=== PATIENT | female | born 1945 | race Caucasian/White ===

== ENCOUNTER 2017-02-25 00:03 | Inpatient (IN) | payer OTHER, MEDICARE ==
[2017-02-25] VITALS (8 sets, daily range): BP systolic 158–178; BP diastolic 70–91; PULSE 75–90; RESP 18–20; TEMP 98.9–100.6; O2SAT 94–98
[~2017-02-25] VITALS: Ht 162.6 cm; Wt 65.5 kg
[2017-02-25] MEDS ORDERED: ARMO120T PO (01:15)
[2017-02-25] MEDS ORDERED: POTA10CA PO (01:15)
[2017-02-25] MEDS ORDERED: LORA0.5T PO (01:15)
[2017-02-25] MEDS ORDERED: LEVS0.123 PO (01:15)
[2017-02-25] MEDS ORDERED: CITA20TA4 PO (01:15)
[2017-02-25] MEDS ORDERED: TRAM50TA PO (01:15)
[2017-02-25] MEDS ORDERED: THYR15 PO (01:15)
[2017-02-25] MEDS ORDERED: LOSA50TA2 PO (01:15)
[2017-02-25] MEDS ORDERED: ONDANSETRON HCL 4 MG/2 ML VIAL IV PUSH ONE (02:00)
[2017-02-25] MEDS ORDERED: MORPHINE SULFATE 4 MG/ML INJ IV PUSH ONE (02:00)
[2017-02-25] MEDS ORDERED: MORPHINE SULFATE 2 MG/ML INJ IV PUSH PRN ×2 (02:00→07:45)
--- NOTE | 2017-02-25 02:01 | PD ---
HPI Chief Complaint: Fall Time Seen by Provider: 01:06 Travel History International Travel<30 days: No Contact w/Intl Traveler<30days: No Traveled to known affect area: No History of Present Illness HPI This is a 71-year-old female with a history of coronary artery disease, diabetes mild as, gastroparesis, hyperlipidemia, hypertension, hypothyroidism, who presents from [facility] as a trauma transfer. The patient apparently tripped over a dog toy and fell onto her right rib area. She states at that time the pain was severe. She reported associated difficulty breathing secondary to the pain. CT scan at [facility] showed flipped chest on the right side. There was no evidence of pneumothoraces or hemothoraces. The patient was accepted by Dr. Ivy. [facility] Past Medical History High Cholesterol: Yes Coronary Artery Disease: Yes Diabetes: Yes Patient Takes Glucophage: No Gastrointestinal Disorders: Yes (GASTROPARESIS) Immunizations Current: Yes Thyroid Disease: Yes ?: Not Past Surgical History Appendectomy: Yes Section: Yes Coronary Artery Bypass Graft: Yes Coronary Stent: Yes Tonsillectomy: Yes Social History Alcohol Use: No Tobacco Use: No Substance Use: No Allergies-Medications (Allergen,Severity, Reaction): Coded Allergies: dicyclomine (Verified Allergy, Unknown, 02/25/17) metoclopramide (Verified Allergy, Unknown, 02/25/17) Reported Meds & Prescriptions Reported Meds & Active Scripts Active Reported Citalopram (Citalopram Hydrobromide) 20 Mg Tab 20 Mg PO DAILY [place] Thyroid (Thyroid) 15 Mg Tab 15 Mg PO HS Tramadol (Tramadol HCl) 50 Mg Tab 50 Mg PO Q4H PRN Potassium Chloride ER (Potassium Chloride) 10 Meq Cap Unknown Dose PO BID Levsin (Hyoscyamine Sulfate) 0.125 Mg Tab 0.125 Mg PO Q6H Lorazepam 0.5 Mg Tab 0.5 Mg PO Q4H PRN Losartan-Hydrochlorothiazide 50-12.5 Mg Tab 1 Tab PO DAILY [place] Thyroid (Thyroid) 120 Mg Tab 120 Mg PO DAILY Review of Systems Except as stated in HPI: all other systems reviewed are Neg General / Constitutional: No: Chills HENT: No: Headaches, Neck Pain Cardiovascular: Positive: Chest Pain or Discomfort (right sided rib), No: Palpitations Respiratory: Positive: Shortness of Breath (secondary to pain), Pleuritic Pain (right sided), No: Cough Gastrointestinal: No: Nausea, Vomiting, Abdominal Pain Genitourinary: No: Dysuria, Incontinence Musculoskeletal: Positive: Pain, No: Weakness (right ribs) Neurologic: No: Weakness, Dizziness, Syncope, Headache Physical Exam Narrative GENERAL: Well developed well-nourished female in obvious discomfort. SKIN: Focused skin assessment warm/dry. HEAD: Atraumatic. Normocephalic. EYES: No scleral icterus. No injection or drainage. ENT: No nasal bleeding or discharge. Mucous membranes pink and moist. NECK: Trachea midline. Supple. CARDIOVASCULAR: Regular rate and rhythm. No murmur appreciated. RESPIRATORY: No accessory muscle use. Obvious splinting secondary to pain. There was some paradoxical movement in her right lateral rib area. GASTROINTESTINAL: Abdomen soft, non-tender, nondistended. No pulses, masses MUSCULOSKELETAL: No obvious deformities. No clubbing. No cyanosis. No edema. NEUROLOGICAL: Awake and alert. No obvious cranial nerve deficits. Motor grossly within normal limits. Normal speech. PSYCHIATRIC: Appropriate mood and affect; insight and judgment normal. Data Data Last Documented VS Vital Signs Date Time Temp Pulse Resp B/P (MAP) Pulse Ox O2 Delivery O2 Flow Rate FiO2 02/25/17 00:20 98.9 77 19 165/70 (101) 98 02/25/17 00:10 Room Air Orders Orders Morphine Inj (Morphine Inj) (02/25/17 02:00) Ondansetron Inj (Zofran Inj) (02/25/17 02:00) Admit Order (Ed Use Only) (02/25/17 01:50) Vital Signs (Adult) Q4H (02/25/17 01:50) Diet Npo (02/25/17 Breakfast) Activity Oob With Assistance (02/25/17 01:50) Notify Dr: Other (02/25/17 01:50) Morphine Inj (Morphine Inj) (02/25/17 02:00) MDM Medical Decision Making Medical Screen Exam Complete: Yes Emergency Medical Condition: Yes Differential Diagnosis Flail chest versus hemothorax versus pneumothorax Narrative Course Diagnoses a 71-year-old female who was accepted by Dr. Ivy as a trauma transfer from [facility]. The patient fell over a dog toy and broke her right ribs. She has multiple lateral and posterior ribs with flail segment. The patient has no obvious hemothorax or pneumothorax per CT reading at [place]. I spoke with Dr. Ivy who requested we put the patient in the intensive care unit overnight. I have medicated her with pain medicine. The patient did have an episode of hypertension at [place] was given hydralazine. Blood pressure here is stable. Diagnosis Primary Impression: right sided flail chest with multiple rib fractures Additional Impressions: Hypertension Hyperlipidemia Diabetes mellitus Coronary artery disease Admitting Information Admitting Physician Requests: Admit Mark Bartholomew MD Feb 25, 2017 02:01
[2017-02-25] MEDS: INSULIN NovoLIN REGULAR SUPPLEMENTAL SCALE SQ SCH ×4 (03:45→20:37)
[2017-02-25] MEDS ORDERED: GLUCAGON 1 MG/ML VIAL OTHER PRN (03:45)
[2017-02-25] MEDS ORDERED: DEXTROSE 50% IN WATER 50 ML VIAL(D50) IV PUSH PRN (03:45)
[2017-02-25] MEDS: SODIUM CHLOR 0.9% 1000 ML INJ 1,000 ML IV SCH ×2 (04:06→20:38)
[2017-02-25 04:12] LABS: AUTOMATED NEUTROPHIL # 6.9 TH/MM3 (1.8-7.7); BASOPHIL % 0.5 % (0.0-2.0); EOSINOPHIL % 0.2 % (0.0-4.0); HEMATOCRIT 42.4 % (35.0-46.0); HEMO FLAGS DIFF FINAL; LYMPH % 18.5 % (9.0-44.0); LYMPHOCYTE # 1.8 TH/MM3 (1.0-4.8); MEAN CELL VOLUME 86.1 FL (80.0-100.0); MEAN CORPUSCULAR HEMOGLOBIN 28.7 PG (27.0-34.0); MEAN CORPUSCULAR HGB CONC 33.3 % (32.0-36.0); MONO % 9.1 % (0.0-8.0); NEUT % 71.7 % (16.0-70.0); PLATELET COUNT 163 TH/MM3 (150-450); RED BLOOD COUNT 4.93 MIL/MM3 (4.00-5.30); RED CELL DISTRIBUTION WIDTH 13.1 % (11.6-17.2); WHITE BLOOD COUNT 9.6 TH/MM3 (4.0-11.0)
[2017-02-25 04:21] LABS: PROTHROMBIN TIME - PATIENT 9.8 SEC (9.8-11.6)
[2017-02-25 04:43] LABS: ALT (GPT) 11 U/L (10-53); ANION GAP 9 MEQ/L (5-15); AST (GOT) 13 U/L (15-37); BICARBONATE 29.2 MEQ/L (21.0-32.0); BLOOD UREA NITROGEN 23 MG/DL (7-18); CHLORIDE 97 MEQ/L (98-107); GLOMERULAR FILTRATION RATE 41 ML/MIN (>89); MAGNESIUM 1.9 MG/DL (1.5-2.5); POTASSIUM 3.4 MEQ/L (3.5-5.1); SODIUM (NA) 135 MEQ/L (136-145)
[2017-02-25 04:54] LABS: ALKALINE PHOSPHATASE 119 U/L (45-117); TOTAL BILIRUBIN ADULT 0.7 MG/DL (0.2-1.0)
--- NOTE | 2017-02-25 05:12 | RADRPT ---
EXAM DATE/TIME: 02/25/2017 05:00 [facility] COMPARISON: No previous studies available for comparison. INDICATIONS : Short of breath. MEDICAL HISTORY : None. SURGICAL HISTORY : None. ENCOUNTER: Initial ACUITY: 1 day PAIN SCORE: Non-responsive. LOCATION: Bilateral chest FINDINGS: Patient is status post sternotomy. The heart size is normal. There is increased density at the right base. There is minimal linear density at the left base. There is a fracture deformity at the proximal right humerus. CONCLUSION: Bibasilar areas of consolidation or atelectasis seen worse on the right. Luis Fernando Fuentes MD on February 25, 2017 at 5:10 Board Certified Radiologist. This report was verified electronically.
[2017-02-25] MEDS ORDERED: MISCELLANEOUS NURSING INFORMATION XX SCH (07:45)
[2017-02-25] MEDS ORDERED: LACTULOSE SYRUP 20 GM/30 ML CUP PO PRN (07:45)
[2017-02-25] MEDS ORDERED: SODIUM CHLORIDE 0.9% FLUSH 10 ML FLUSH IV FLUSH PRN (07:45)
[2017-02-25] MEDS ORDERED: CHLORHEXIDINE GLUCONATE 2 % 1 PACK (2 CLOTHS) TOP PRN (07:45)
[2017-02-25] MEDS ORDERED: ONDANSETRON HCL 4 MG/2 ML VIAL IV PUSH PRN (07:45)
[2017-02-25] MEDS ORDERED: ENALAPRILAT 1.25 MG/ML VIAL IV PUSH PRN (07:45)
[2017-02-25] MEDS ORDERED: POTASSIUM CHLORIDE 20 MEQ CONTROLLED RELEASE TAB PO ONE (08:00)
[2017-02-25] MEDS ORDERED: NON-FORMULARY DRUG (Losartan-Hydrochlorothiazide 1 TAB) PO SCH (09:00)
[2017-02-25] MEDS: PANTOPRAZOLE SOD 40 MG DELAYED RELEASE TAB PO SCH (09:24)
[2017-02-25] MEDS: METHOCARBAMOL 500 MG TAB PO SCH ×2 (09:24→16:27)
[2017-02-25] MEDS: HYDROCHLOROTHIAZIDE 12.5 MG CAP PO SCH (09:24)
[2017-02-25] MEDS: HYOSCYAMINE 0.125 MG TAB PO SCH ×3 (09:24→20:34)
[2017-02-25] MEDS: LOSARTAN 50 MG TAB PO SCH (09:25)
[2017-02-25] MEDS: DOCUSATE SODIUM 50 MG/SENNA 8.6 MG TAB PO SCH ×2 (09:25→20:34)
[2017-02-25] MEDS: CITALOPRAM HYDROBROMIDE 20 MG TAB PO SCH (09:25)
[2017-02-25] MEDS: ACETAMINOPHEN 1000 MG/100 ML 100 ML IV SCH ×3 (09:25→20:32)
[2017-02-25] MEDS: POLYETHYLENE GLYCOL 17 GM PKG PO SCH (09:26)
--- NOTE | 2017-02-25 09:37 | MB ---
cc: CARINA BUENO M.D. DATE OF CONSULTATION 02/25/2017 DATE OF 1945 HISTORY OF PRESENT ILLNESS The patient is a 71-year-old female with a past medical history of coronary artery disease, gastroparesis, hyperlipidemia, hypertension, hypothyroidism, who initially presented to [facility] status post a fall. She had a CT scan of the chest at [facility] which showed multiple rib fractures from 3rd to 8th ribs and a flail chest. There is no evidence of any lung contusion, pneumothorax or hemothorax. She also had a CT scan of the brain which was negative for hemorrhage or mass effect. The patient was transferred to [place] under Dr. Ivy's service and critical care medicine was consulted for critical care management. When seen in the ER she was on room air oxygen with a blood pressure of 165/70. In the ED she was given morphine for pain. The patient denies any chest pain or any constitutional symptoms. In addition, she denies any nausea, vomiting or abdominal pain. PAST MEDICAL HISTORY 1. Hyperlipidemia. 2. Gastroparesis. 3. Hypertension. 4. Hypothyroidism. 5. Mild diabetes mellitus. 6. Coronary artery disease. PAST SURGICAL HISTORY 1. Previous CABG. 2. Previous . 3. Previous appendectomy. SOCIAL HISTORY Occasional smoker. ALLERGIES No known drug allergies. MEDICATIONS Reported medications include: 1. Levsin. 2. Losartan/hydrochlorothiazide. 3. Tramadol. 4. Celexa. 5. Lorazepam p.r.n. 6. [place] Thyroid. REVIEW OF SYSTEMS As per HPI. The rest of the review of systems is unremarkable. PHYSICAL EXAMINATION A 71-year-old female lying in bed in no acute distress. VITAL SIGNS: Afebrile with temperature 98.9, pulse 77, respiratory rate 19, blood pressure 165/70, sats 98%. HEENT: Atraumatic, normocephalic. Pupils equal, round and reactive to light and accommodation. Extraocular movements intact. Conjunctiva pink. Non-icteric sclera. Oral mucosa within normal. NECK: Supple. No JVD, adenopathy, thyromegaly. Trachea in the midline. CARDIOVASCULAR: Regular rate and rhythm. Normal S1, S2. No murmurs, rubs or gallops noted. PULMONARY: Bilateral equal entry. No rales or wheezing. ABDOMEN: Soft, nontender, no distention. Positive bowel sounds. EXTREMITIES: No clubbing, cyanosis or edema. NEUROLOGIC: No focal sensory deficit. LABORATORY/RADIOGRAPHIC STUDIES Not performed in the ED. Radiographic studies at [facility]: CT scan of the brain showed no hemorrhage or mass effect. CT scan of the chest showed flail chest and multiple rib fractures from the 3rd to 8th ribs. No evidence of any pulmonary contusion, pneumothorax or hemothorax. IMPRESSION 1. Status post fall. 2. Multiple right-sided rib fractures, 3rd through 8th. 3. Flail chest. 4. Hypertension. 5. History of depression. 6. Thyroid disease. 7. Coronary artery disease. PLAN/RECOMMENDATIONS 1. Monitor neuro status. CT scan of the brain at [facility] showed no evidence of any hemorrhage or mass effect. 2. Oxygen p.r.n. to maintain sats above 92%. 3. Bronchodilators in the form of DuoNeb q.6h., plus q.2h. p.r.n. for shortness of breath. 4. CT scan of the chest at [facility] reviewed. Will obtain a baseline chest x-ray. 5. Continue with morphine for pain control. 6. Monitor heart rate and blood pressure closely and maintain MAP greater than 65 mmHg. 7. Monitor renal function, I's and O's and electrolyte replacement per protocol. 8. Place on IV fluids, NS at 75 mL an hour. 9. Keep n.p.o. for now. Place on Protonix 40 mg daily for underlying history of gastroparesis. 10.Monitor for signs of infection which include fever and WBC. Panculture if spikes a fever. 11.Sliding scale insulin with Accu-Cheks to maintain euglycemia. 12.Will obtain a baseline TSH level given underlying history of thyroid disease. 13.Monitor CBC. 14.GI prophylaxis with Protonix 40 mg daily and DVT prophylaxis with SCDs for now. 15.Will obtain basic labs which include CBC, BMP, magnesium and phosphorus. In addition, will check a coagulation profile. 16.Further recommendations will be based on the hospital course. MD JANET Solomon/PANCHO /3:36 AM /9:10 AM
--- NOTE | 2017-02-25 09:55 | RADRPT ---
EXAM DATE/TIME: 02/25/2017 08:24 [facility] COMPARISON: No previous studies available for comparison. INDICATIONS : Fall. MEDICAL HISTORY : Thyroid disease. CAD. Diabetic. SURGICAL HISTORY : Tonsillectomy. CABG. Appendectomy. section. ENCOUNTER: Initial ACUITY: 1 day PAIN SCORE: LOCATION: Right neck PEAK SYSTOLIC VELOCITIES (cm/sec): ICA/CCA RATIO: Right: 0.68 Left: 2.0 ICA: Right: 73 Left: 197 CCA: Right: 106 Left: 98 ECA: Right: 190 Left: 319 VERTEBRAL: Right: 51 antegrade Left: 81 antegrade Elevated flow velocities and ICA/CCA ratios have been found to correlate with increased degrees of vessel stenosis, calculated as percentage of diameter relative to a normal segment of distal ICA/CCA FINDINGS: RIGHT CAROTID: Minimal carotid plaque without significant flow-limiting stenosis. Waveforms are within normal limits . LEFT CAROTID: Moderate calcified plaque in the carotid bulb and proximal internal carotid artery with resultant mod erate, approximately 50-69%, stenosis. VERTEBRAL ARTERIES: Antegrade flow is seen in both vertebral arteries. MISCELLANEOUS: None. CONCLUSION: 1. Calcified left carotid plaque with resultant moderate, approximately 50-69%, stenosis. 2. No significant flow-limiting stenosis on the right. 3. Antegrade vertebral artery flow bilaterally. Mook Elizondo MD on February 25, 2017 at 9:50 Board Certified Radiologist. This report was verified electronically.
[2017-02-25] MEDS: THYROID 60 MG TAB PO SCH (10:16)
[2017-02-25] MEDS: LIDOCAINE HCL 5% PATCH T-DERMAL SCH (10:29)
[2017-02-25] MEDS: RESP: ALBUTEROL 2.5 MG/IPRATROPIUM 0.5 MG NEB (SCH) NEB ×3 (12:13→20:01)
--- NOTE | 2017-02-25 19:09 | MH ---
cc: COLLINS CARDOSO MD DATE OF ADMISSION 02/25/[address] Cardoso, trauma surgery. HISTORY OF THE PRESENT ILLNESS This 71-year-old female with quite complex past medical history apparently fell at home and was presented to [facility]. CT of the chest shows multiple right-sided rib fractures 3, 4, 5, 6, 7, and 8 and it is noted to be in two places on some of them, by definition this is a flail segment. There is no evidence of lung contusion or hemopneumothorax. No other injuries. The request was made to transfer the patient to us which is readily done. The patient arrives through our ER and is admitted to ICU for further care. PAST MEDICAL HISTORY Is that of: 1. Hypertension. 2. Hypothyroidism. 3. Diabetes mellitus. 4. Previous history of coronary artery disease. PAST SURGICAL HISTORY 1. Coronary artery bypass graft. 2. section. 3. Appendectomy. SOCIAL HISTORY The patient does not drink but smokes occasionally, very little. MEDICATIONS Can be found on the record. PHYSICAL EXAMINATION GENERAL: Reveals a 71-year-old lady awake, alert and oriented. HEENT: Normocephalic. No trauma to the head. Pupils equally reactive. Extraocular muscles intact. Sclerae anicteric. No hemotympanum. No Garcia sign or raccoon's eyes. NECK: Bilateral carotid pulses. No bruits. LUNGS: Bilateral breath sounds. HEART: Regular rhythm. ABDOMEN: Soft. Active bowel sounds. No rebound or guarding. No masses. EXTREMITIES: Within normal limits. Good proximal distal pulses. No vascular deficit. NEUROLOGIC: The patient is fully intact. Ofelia scale is 15. Motoric and sensory intact. Cranial nerves II through XII are normal. CHEST: Focused exam of chest, the patient is tender over the right-sided chest, however, taking good breaths and managed well with medications. I do not feel any crepitus or depression. IMPRESSION Patient with a chest contusion and rib fractures to be admitted for further care and care per clinical indices. Collins SWEENEY/PAULO /6:53 PM /6:59 PM
[2017-02-25] MEDS: THYROID 15 MG TAB PO SCH (20:31)
--- NOTE | 2017-02-25 21:17 | MB ---
cc: PENELOPE NEGRETE M.D. DATE OF CONSULTATION 02/25/17 REASON FOR CONSULTATION Right rib fracture. HISTORY OF PRESENT ILLNESS Mrs. Hinojosa is a 71-year-old female who had fallen at home, hit her right chest with fracture of 3, 4, 5, 6, 7 and 8 ribs. The patient initially admitted to intensive care for observation, is now on the medical floor. She has discomfort at the right ribcage holding a pillow to it to alleviate pain especially with cough or movement. She denies history of shortness of breath, fever, chills or hemoptysis. PAST MEDICAL HISTORY 1. Diabetes mellitus, 2. Hypertension, 3. Hypothyroidism, 4. Coronary artery disease, had bypass surgery in the past 5. , 6. Appendectomy in the past SOCIAL HISTORY Does not smoke, does not drink. No TB, no industrial exposure. MEDICATIONS 1. [place] thyroid 2. Nebulized Albuterol. 3. Tylenol as needed 4. Robaxin. 5. Citalopram. 6. Losartan. ALLERGIES None known to medications. FAMILY HISTORY Noncontributory. REVIEW OF SYSTEMS 12-point review of system as per HPI and past history otherwise negative. PHYSICAL EXAMINATION GENERAL: The patient is alert appears in no acute distress. HEENT: Exam unremarkable. Eyes without icterus. NECK: No adenopathy or thyroid enlargement. Central trachea. CHEST: Tenderness right lower ribs noted. CARDIAC: PMI not appreciated. S1, S2 audible. No murmur or rub. ABDOMEN: Lax, bowel sounds audible. EXTREMITIES: No clubbing, cyanosis or edema. SKIN: Normal, no lymphadenopathy. No thyroid enlargement. IMPRESSION 1. Right hip fracture as described above 2. Diabetes mellitus 3. Hypertension. PLAN The patient is doing well other than some pain at the fracture site which is to be expected. She is without acute distress. Her x-ray had revealed evidence of pulmonary contusion. The computer system is not functional at present. I cannot really review her x-rays and see if further interference need be done at this point. However, we will follow her chest x-ray. Meanwhile, her activity will be gradually increased as tolerated. If she does well in the next day or two, she may be discharged and followed as an outpatient. I do thank you for asking me to partake in Mrs. Hinojosa's care. MD PRIYANKA Pereira/ /7:32 PM /9:02 PM
[2017-02-25] MEDS ORDERED: IOHEXOL 350 MG/ML 10 ML VIAL (for RAD DIAG) IVCONTRAST ONE (22:01)
[2017-02-25] MEDS ORDERED: PERI PO (22:22)
--- NOTE | 2017-02-25 22:50 | RADRPT ---
EXAM DATE/TIME: 02/25/2017 21:46 [facility] COMPARISON: US CAROTID ARTERIES, February 25, 2017, 8:24. INDICATIONS : Syncope, evaluate carotid stenosis. IV CONTRAST: 75 cc Omnipaque 350 (iohexol) IV RADIATION DOSE: 27.75 CTDIvol (mGy) MEDICAL HISTORY : Cardiovascular disease. Hypertension. Diabetes. SURGICAL HISTORY : None. ENCOUNTER: Initial ACUITY: 1 day PAIN SCALE: 0/10 LOCATION: neck Elevated flow velocities and ICA/CCA ratios have been found to correlate with increased degrees of vessel stenosis, calculated as percentage of diameter relative to a normal segment of distal ICA/CCA. TECHNIQUE: Volumetric scanning was performed using a multirow detector CT scanner. The data was post processed with a variety of visualization algorithms including full-volume maximum intensity projection, multip lanar sliding thin-slab reformation, curved-planar reformation, and surface-rendering techniques. Us ing automated exposure control and adjustment of the mA and/or kV according to patient size, radiatio n dose was kept as low as reasonably achievable to obtain optimal diagnostic quality images. DICOM f ormat image data is available electronically for review and comparison. FINDINGS: AORTIC ARCH: There is a three-vessel origin of the great vessels from the aorta. No evidence of ostial narrowing. RIGHT CAROTID: The common carotid artery is intact. The carotid bulb has a normal configuration without ulceration o r narrowing. There is a smooth marginal ulceration in the posterior wall of the proximal internal ca rotid artery. No luminal stenosis.. The external carotid artery is intact. LEFT CAROTID: The common carotid artery is intact. The carotid bulb has a normal configuration without ulceration or narrowing. There is a short segment high-grade stenosis of the proximal internal carotid artery g reater than 72%. There is also 60% narrowing of the proximal external carotid artery segment at is 8 mm in length.. The external carotid artery is intact. VERTEBRALS: The vertebral arteries have a symmetric diameter. No stenotic lesions are seen. CONCLUSION: 1. Short segment 72% stenosis of the proximal left internal carotid artery. 2. Long segment 60% stenosis of the proximal left external carotid artery. 3. Smooth margin widening of the proximal right internal carotid artery suggesting ulcer. Joes Mason MD on February 25, 2017 at 22:35 Board Certified Radiologist. This report was verified electronically.
[2017-02-26] VITALS (9 sets, daily range): BP systolic 135–199; BP diastolic 62–89; PULSE 69–104; RESP 16–18; TEMP 98.5–102.9; O2SAT 72–97
[2017-02-26] MEDS: METHOCARBAMOL 500 MG TAB PO SCH ×4 (00:39→23:59)
[2017-02-26] MEDS: ACETAMINOPHEN 1000 MG/100 ML 100 ML IV SCH (03:03)
[2017-02-26] MEDS: HYOSCYAMINE 0.125 MG TAB PO SCH ×4 (03:03→21:22)
[2017-02-26] MEDS: INSULIN NovoLIN REGULAR SUPPLEMENTAL SCALE SQ SCH ×4 (03:04→21:23)
[2017-02-26] MEDS ORDERED: CHLORHEXIDINE GLUCONATE 2 % 1 PACK (2 CLOTHS) TOP SCH (04:00)
--- NOTE | 2017-02-26 06:13 | HHI.FF ---
Face to Face Verification Diagnosis: (1) Ribs, multiple fractures (2) Coronary artery disease (3) Diabetes mellitus (4) Hyperlipidemia (5) Hypertension Physical Therapy Order: Evaluate and Treat, Improve ambulation, Strength and gait training Home Health Nursing Order: Medical education Signs/symptoms of disease process Diabetic education Medication education-adverse effect Nursing assessment with vital signs I have seen patient Hilda Hinojosa on 02/26/17. My clinical findings support the need for the requested home health care services because: Ltd mobility - disease progression Deconditioned w/ increased weakness Limited ability to care for self High risk of falls I certify that my clinical findings support that this patient is homebound because: Post-op weakness Unsteady gait/balance Unsafe to leave home unassisted [id number] bed/chair Unable to use public transportation Lmaar Little Feb 26, 2017 06:13
[2017-02-26] MEDS ORDERED: cloNIDine HCL 0.1 MG TAB PO PRN (06:15)
[2017-02-26] MEDS: SODIUM CHLOR 0.9% 1000 ML INJ 1,000 ML IV SCH ×2 (06:25→21:22)
[2017-02-26] MEDS: RESP: ALBUTEROL 2.5 MG/IPRATROPIUM 0.5 MG NEB (SCH) NEB ×4 (08:00→19:06)
--- NOTE | 2017-02-26 09:15 | RADRPT ---
EXAM DATE/TIME: 02/26/2017 08:14 [facility] COMPARISON: CHEST SINGLE AP, February 25, 2017, 5:00. INDICATIONS : Evaluate acute trauma injury after patient fell. Patient complains of right side chest pain after fal ling on right side pain. Patient has a cough. MEDICAL HISTORY : Cardiovascular disease. Hypertension. Diabetes SURGICAL HISTORY : None. ENCOUNTER: Initial ACUITY: 2 days PAIN SCORE: 4/10 LOCATION: Right chest FINDINGS: A single portable frontal view of the chest shows consolidation within both lung bases but more prono unced on the right. This is shown some improvement from yesterday's exam. The heart remains enlarged. No discrete effusions. Median sternotomy wires. CONCLUSION: Slight improvement in the bibasilar consolidations. Jose Parra Jr., MD on February 26, 2017 at 9:11 Board Certified Radiologist. This report was verified electronically.
[2017-02-26 09:39] LABS: AUTOMATED NEUTROPHIL # 6.5 TH/MM3 (1.8-7.7); BASOPHIL % 0.3 % (0.0-2.0); EOSINOPHIL # 0.2 TH/MM3 (0-0.4); EOSINOPHIL % 1.8 % (0.0-4.0); HEMATOCRIT 39.7 % (35.0-46.0); HEMO FLAGS DIFF FINAL; LYMPHOCYTE # 1.3 TH/MM3 (1.0-4.8); MEAN CELL VOLUME 86.1 FL (80.0-100.0); MEAN CORPUSCULAR HEMOGLOBIN 29.5 PG (27.0-34.0); MEAN CORPUSCULAR HGB CONC 34.2 % (32.0-36.0); NEUT % 73.9 % (16.0-70.0); PLATELET COUNT 124 TH/MM3 (150-450); RED BLOOD COUNT 4.61 MIL/MM3 (4.00-5.30); RED CELL DISTRIBUTION WIDTH 13.3 % (11.6-17.2); WHITE BLOOD COUNT 8.8 TH/MM3 (4.0-11.0)
[2017-02-26 10:03] LABS: ANION GAP 8 MEQ/L (5-15); AST (GOT) 12 U/L (15-37); BICARBONATE 27.4 MEQ/L (21.0-32.0); BLOOD UREA NITROGEN 24 MG/DL (7-18); CHLORIDE 100 MEQ/L (98-107); GLOMERULAR FILTRATION RATE 39 ML/MIN (>89); POTASSIUM 3.8 MEQ/L (3.5-5.1); SODIUM (NA) 135 MEQ/L (136-145)
[2017-02-26 10:09] LABS: ALT (GPT) 9 U/L (10-53)
[2017-02-26 10:19] LABS: ALKALINE PHOSPHATASE 102 U/L (45-117); TOTAL BILIRUBIN ADULT 0.6 MG/DL (0.2-1.0)
[2017-02-26] MEDS: LIDOCAINE HCL 5% PATCH T-DERMAL SCH (11:11)
[2017-02-26] MEDS: HYDROCHLOROTHIAZIDE 12.5 MG CAP PO SCH (11:12)
[2017-02-26] MEDS: THYROID 60 MG TAB PO SCH (11:12)
[2017-02-26] MEDS: THYROID 15 MG TAB PO SCH ×2 (11:12→21:22)
[2017-02-26] MEDS: PANTOPRAZOLE SOD 40 MG DELAYED RELEASE TAB PO SCH (11:13)
[2017-02-26] MEDS: DOCUSATE SODIUM 50 MG/SENNA 8.6 MG TAB PO SCH ×2 (11:13→21:23)
[2017-02-26] MEDS: LOSARTAN 50 MG TAB PO SCH (11:13)
[2017-02-26] MEDS: CITALOPRAM HYDROBROMIDE 20 MG TAB PO SCH (11:14)
[2017-02-26] MEDS: POLYETHYLENE GLYCOL 17 GM PKG PO SCH (11:14)
--- NOTE | 2017-02-26 12:31 | HHI.PR ---
Subjective Subjective Notes PTD: 1 Patient sitting up in bed. Hugging a pillow. at bedside. He states patient walked in the hallway yesterday. Pt keeps her body in a stiff/ still position due to her pain. She does not want to move because it hurts. Patient states she has very painful. "I have to shake your hand gently because of the pain." Objective Vitals/I&O Vital Signs Date Time Temp Pulse Resp B/P (MAP) Pulse Ox O2 Delivery O2 Flow Rate FiO2 02/26/17 08:00 98.8 72 16 161/72 (101) 72 02/25/17 20:15 Nasal Cannula 3.00 Labs Laboratory Tests Test 02/26/17 09:00 White Blood Count 8.8 Red Blood Count 4.61 Hemoglobin 13.6 Hematocrit 39.7 Mean Corpuscular Volume 86.1 Mean Corpuscular Hemoglobin 29.5 Mean Corpuscular Hemoglobin Concent 34.2 Red Cell Distribution Width 13.3 Platelet Count 124 Mean Platelet Volume 9.4 Neutrophils (%) (Auto) 73.9 Lymphocytes (%) (Auto) 15.0 Monocytes (%) (Auto) 9.0 Eosinophils (%) (Auto) 1.8 Basophils (%) (Auto) 0.3 Neutrophils # (Auto) 6.5 Lymphocytes # (Auto) 1.3 Monocytes # (Auto) 0.8 Eosinophils # (Auto) 0.2 Basophils # (Auto) 0.0 CBC Comment DIFF FINAL Differential Comment Blood Urea Nitrogen 24 Creatinine 1.35 Random Glucose 89 Total Protein 6.6 Albumin 3.1 Calcium Level 8.7 Alkaline Phosphatase 102 Aspartate Amino Transf (AST/SGOT) 12 Alanine Aminotransferase (ALT/SGPT) 9 Total Bilirubin 0.6 Sodium Level 135 Potassium Level 3.8 Chloride Level 100 Carbon Dioxide Level 27.4 Anion Gap 8 Estimat Glomerular Filtration Rate 39 Radiology Last Impressions Chest X-Ray 02/26/17 0000 Signed Impressions: Service Date/Time: Sunday, February 26, 2017 08:14 - CONCLUSION: Slight improvement in the bibasilar consolidations. Jose Parra Jr., MD Neck CTA 02/25/17 0000 Signed Impressions: Service Date/Time: Saturday, February 25, 2017 21:46 - CONCLUSION: 1. Short segment 72%% stenosis of the proximal left internal carotid artery. 2. Long segment 60%% stenosis of the proximal left external carotid artery. 3. Smooth margin widening of the proximal right internal carotid artery suggesting ulcer. Jose Mason MD Carotid Artery Ultrasound 02/25/17 0000 Signed Impressions: Service Date/Time: Saturday, February 25, 2017 08:24 - CONCLUSION: 1. Calcified left carotid plaque with resultant moderate, approximately 50-69%%, stenosis. 2. No significant flow-limiting stenosis on the right. 3. Antegrade vertebral artery flow bilaterally. Mook Elizondo MD Narrative Exam GENERAL: This is a 71-year-old female lying in bed. No distress noted. Painful. SKIN: Warm and dry. HEAD: Atraumatic. Normocephalic. EYES: PERRLA ENT: No nasal bleeding or discharge. Mucous membranes pink and moist. NECK: Trachea midline. No JVD. CARDIOVASCULAR: Regular rate and rhythm. RESPIRATORY: No accessory muscle use. Lungs are clear to auscultation. Breath sounds equal bilaterally. No distress or dyspnea. GASTROINTESTINAL: BS + x 4 quads. Abdomen soft, non-tender, nondistended. MUSCULOSKELETAL: Extremities without cyanosis, or edema. + peripheral pulses x 4 extremities. Warm with good capillary refill and sensation. MAEW. NEUROLOGICAL: Awake and alert. Normal speech and pattern. A/P Problem List: (1) Coronary artery disease ICD Codes: I25.10 - Atherosclerotic heart disease of [place] coronary artery without angina pectoris Status: Chronic (2) Diabetes mellitus ICD Codes: E11.9 - Type 2 diabetes mellitus without complications Status: Chronic (3) Hyperlipidemia ICD Codes: E78.5 - Hyperlipidemia, unspecified Status: Chronic (4) Hypertension ICD Codes: I10 - Essential (primary) hypertension Status: Chronic (5) Ribs, multiple fractures ICD Codes: S22.49XA - Multiple fractures of ribs, unspecified side, initial encounter for closed fracture Status: Acute Assessment and Plan [place]: This is a 71-year-old female who sustained a fall. She fell from the standing position when she tripped over a dog toy and landed on her right ribs. She was a trauma transfer from [facility]. INJURIES: RIGHT rib fxs ? flail chest RIGHT pulmonary contusion PMHx: CAD, DM, gastroparesis, HLD, HTN, Hypothyroidism, CABG, Cariac stents, undiagnosed COPD Procedures: Consults: Pulmonology. Case management. Diet: Regular diet. Tolerating po diet. Encourage good po intake with each meal. Pulmonary: Encourage good pulmonary toileting. IS and acapella at bedside and pt encouraged to use. Rationale for use explained to patient, and verbalized understanding. EZ pap w/ nebs. Today's chest x-ray shows slight improvement in consolidations. Follow-up chest x-ray in the morning. PAIN Management: Oxycodone 5-10 mg q 4h. Morphine 2mg q 3h. Robaxin 500 mg q 8h. Lidoderm patch. OFIRMEV q 6h. Discussed with patient the importance of maintaining good pain control. Activity: OOB. PT and OT ordered. Encourage out of bed. GI prophylaxis: PO Protonix Bowel regimen: Alannah-colace, Miralax, PRN Lactulose. LBM: 0 DVT prophylaxis: Mechanical VTE with SCDs. Chemical management with Lovenox 30 BID SQ. DC Planning: Case management consulted for assistance with final discharge disposition. Pt recommends [facility]. Face to face completed. Emotional support provided to patient and family at bedside and plan of care discussed. Discussed with RN at bedside. Discussed pt condition and plan of care with collaborating trauma surgeon. Patient is hemodynamically stable and being managed on the med/surg floor. The trauma team will round each day, and evaluate plan of care on a daily basis. RIGHT rib fxs ? flail chest RIGHT pulmonary contusion O2 as needed Aggressive pulmonary toileting Pain management PT and OT ordered Encourage out of bed Chest x-ray today shows slight improvement in consolidations Follow-up chest x-ray in the morning DM HTN 1800 ADA diet Resumed home medications - Cozaar. HCTZ. Clonidine when necessary Vital signs every 4 hours Problem Qualifiers (1) Coronary artery disease: Qualified Codes: I25.10 - Atherosclerotic heart disease of [place] coronary artery without angina pectoris (2) Hyperlipidemia: Qualified Codes: E78.5 - Hyperlipidemia, unspecified (3) Hypertension: Qualified Codes: I10 - Essential (primary) hypertension (4) Ribs, multiple fractures: Qualified Codes: S22.41XA - Multiple fractures of ribs, right side, initial encounter for closed fracture Lamar Little Feb 26, 2017 12:31
[2017-02-26] MEDS: ENOXAPARIN SODIUM 30 MG/0.3 ML SYRINGE SQ SCH (16:39)
--- NOTE | 2017-02-26 19:21 | HHI.PR ---
Subjective Remarks ALERT SITTING IN BED PAIN R CHEST Objective Vital Signs Date Time Temp Pulse Resp B/P (MAP) Pulse Ox O2 Delivery O2 Flow Rate FiO2 02/26/17 15:13 92 Nasal Cannula 2.00 02/26/17 08:00 98.8 72 16 161/72 (101) 72 02/26/17 06:06 73 151/67 (95) 02/26/17 05:39 98.8 85 18 199/89 (125) 95 02/26/17 01:27 100.4 83 18 167/73 (104) 95 02/25/17 21:47 100.6 90 18 178/91 (120) 95 02/25/17 20:15 Nasal Cannula 3.00 02/25/17 20:00 82 I/O 02/25/17 02/25/17 02/25/17 02/26/17 02/26/17 02/26/17 07:00 15:00 23:00 07:00 15:00 23:00 Intake Total 100 ml 820 ml 240 ml Balance 100 ml 820 ml 240 ml Intake Oral 720 ml 240 ml IV Total 100 ml 100 ml # Voids 3 1 Result Diagram: 02/26/17 0900 02/26/17 0900 Medications and IVs GENERAL: SKIN: Warm and dry. HEAD: Atraumatic. Normocephalic. EYES: Pupils equal and round. No scleral icterus. No injection or drainage. ENT: No nasal bleeding or discharge. Mucous membranes pink and moist. NECK: Trachea midline. No JVD. CARDIOVASCULAR: Regular rate and rhythm. RESPIRATORY: No accessory muscle use. DECREASE BREATH SOUNDS RIGHT BASE GASTROINTESTINAL: Abdomen soft, non-tender, nondistended. Hepatic and splenic margins not palpable. MUSCULOSKELETAL: Extremities without clubbing, cyanosis, or edema. No obvious deformities. NEUROLOGICAL: Awake and alert. No obvious cranial nerve deficits. Motor grossly within normal limits. Five out of 5 muscle strength in the arms and legs. Normal speech. PSYCHIATRIC: Appropriate mood and affect; insight and judgment normal. Assessment and Plan Assessment and Plan RIB FX PULM CONTUSION PLAN F/U CXRAY PAIN MEDS INCREASE ACTIVITY Akash Bustos MD Feb 26, 2017 19:21
[2017-02-26] MEDS ORDERED: ACETAMINOPHEN 325 MG TAB PO PRN (23:45)
[2017-02-27] VITALS (11 sets, daily range): BP systolic 109–175; BP diastolic 55–72; PULSE 77–95; RESP 16–18; TEMP 99.1–102.8; O2SAT 91–95
[2017-02-27] MEDS: HYOSCYAMINE 0.125 MG TAB PO SCH ×4 (03:29→22:30)
[2017-02-27] MEDS: ENOXAPARIN SODIUM 30 MG/0.3 ML SYRINGE SQ SCH (03:30)
[2017-02-27] MEDS: INSULIN NovoLIN REGULAR SUPPLEMENTAL SCALE SQ SCH ×4 (03:32→21:45)
--- NOTE | 2017-02-27 06:44 | RADRPT ---
EXAM DATE/TIME: 02/27/2017 06:12 [facility] COMPARISON: CHEST SINGLE AP, February 26, 2017, 8:14. INDICATIONS : Shortness of breath MEDICAL HISTORY : Cardiovascular disease. Hypertension. Diabetes SURGICAL HISTORY : None. ENCOUNTER: Subsequent ACUITY: 2 days PAIN SCORE: 8/10 LOCATION: Bilateral chest FINDINGS: The patient is status post sternotomy. The heart size is upper limits of normal. There is increased d ensity at the right base. Right rib fractures are seen. The left lung appears clear. There is a fract ure deformity of the proximal right humerus. CONCLUSION: 1. Increased density at the right base representing either elevation of the right hemidiaphragm versu s consolidation or atelectasis of the right middle and lower lobes and/or a right pleural effusion. G iven the possibility of collapse of the right middle and lower lobe, one could consider a central les ion. 2. Right rib and proximal humeral fractures. Luis Fernando Fuentes MD on February 27, 2017 at 6:39 Board Certified Radiologist. This report was verified electronically.
[2017-02-27] MEDS: LACTULOSE SYRUP 20 GM/30 ML CUP PO SCH ×2 (06:45→10:27)
[2017-02-27] MEDS: RESP: ALBUTEROL 2.5 MG/IPRATROPIUM 0.5 MG NEB (SCH) NEB ×4 (08:02→20:38)
--- NOTE | 2017-02-27 09:33 | HHI.PR ---
Subjective Subjective Notes PTD: 2 Patient sitting up in bed. Patient is extremely painful, asking "have you ever had your ribs broken? This is very painful. I'm so sorry" Objective Vitals/I&O Vital Signs Date Time Temp Pulse Resp B/P (MAP) Pulse Ox O2 Delivery O2 Flow Rate FiO2 02/27/17 08:02 91 Nasal Cannula 3.00 02/27/17 08:00 100.1 77 16 134/60 (84) Radiology Last [address] guided chest tube placement to be done today and IR Chest X-Ray 02/27/17 0600 Signed Impressions: Service Date/Time: , February 27, 2017 06:12 - CONCLUSION: 1. Increased density at the right base representing either elevation of the right hemidiaphragm versus consolidation or atelectasis of the right middle and lower lobes and/or a right pleural effusion. Given the possibility of collapse of the right middle and lower lobe, one could consider a central lesion. 2. Right rib and proximal humeral fractures. Luis Fernando Fuentes MD Narrative Exam GENERAL: This is a 71-year-old female lying in bed. No distress noted. Remains very painful. SKIN: Warm and dry. HEAD: Atraumatic. Normocephalic. EYES: PERRLA ENT: No nasal bleeding or discharge. Mucous membranes pink and moist. NECK: Trachea midline. No JVD. CARDIOVASCULAR: Regular rate and rhythm. RESPIRATORY: No accessory muscle use. Lungs are clear to auscultation. Breath sounds equal bilaterally. No distress or dyspnea. GASTROINTESTINAL: BS + x 4 quads. Abdomen soft, non-tender, nondistended. MUSCULOSKELETAL: Extremities without cyanosis, or edema. + peripheral pulses x 4 extremities. Warm with good capillary refill and sensation. MAEW. NEUROLOGICAL: Awake and alert. Normal speech and pattern. A/P Problem List: (1) Coronary artery disease ICD Codes: I25.10 - Atherosclerotic heart disease of [place] coronary artery without angina pectoris Status: Chronic (2) Diabetes mellitus ICD Codes: E11.9 - Type 2 diabetes mellitus without complications Status: Chronic (3) Hyperlipidemia ICD Codes: E78.5 - Hyperlipidemia, unspecified Status: Chronic (4) Hypertension ICD Codes: I10 - Essential (primary) hypertension Status: Chronic (5) Ribs, multiple fractures ICD Codes: S22.49XA - Multiple fractures of ribs, unspecified side, initial encounter for closed fracture Status: Acute Assessment and Plan [place] [facility] [place]: This is a 71-year-old female who sustained a fall. She fell from the standing position when she tripped over a dog toy and landed on her right ribs. She was a trauma transfer from [facility]. INJURIES: RIGHT rib fxs ? flail chest RIGHT pulmonary contusion RIGHT proximal humerus fx PMHx: CAD, DM, gastroparesis, HLD, HTN, Hypothyroidism, CABG, Cariac stents, undiagnosed COPD Procedures: Consults: Pulmonology. Orthopedics. Case management. Diet: Regular diet. Tolerating po diet. Encourage good po intake with each meal. Pulmonary: Encourage good pulmonary toileting. IS and acapella at bedside and pt encouraged to use. Rationale for use explained to patient, and verbalized understanding. EZ pap w/ nebs. Today's chest x-ray shows right middle and lower lobe densities and right pleural effusion. Most likely residual blood. Plan for CT guided chest tube with IR today. Patient made aware of plan and agrees with treatment. Follow-up labs and chest x-ray in the morning. New RIGHT humerus fx noted on CXR this AM - orthopedics consulted. PAIN Management: Oxycodone 5-10 mg q 4h. Morphine 2mg q 3h. Robaxin 500 mg q 8h. Lidoderm patch. OFIRMEV q 6h - completed today. Added fentanyl patch 50 mcg. And Toradol 15 mg q 6h scheduled . Discussed with patient the importance of maintaining good pain control and patient is in agreement as she is very painful. Activity: OOB. PT and OT ordered. Encourage out of bed. GI prophylaxis: PO Protonix Bowel regimen: Alannah-colace, Miralax, Lactulose daily. LBM: 0 DVT prophylaxis: Mechanical VTE with SCDs. Chemical management with Lovenox 30 BID SQ - on hold for CT placement. DC Planning: Case management consulted for assistance with final discharge disposition. Pt recommends [facility]. Face to face completed. Emotional support provided to patient and family at bedside and plan of care discussed. Discussed with RN at bedside. Discussed pt condition and plan of care with collaborating trauma surgeon. Patient is hemodynamically stable and being managed on the med/surg floor. The trauma team will round each day, and evaluate plan of care on a daily basis. RIGHT humerus fx Orthopedics consulted and assisting in management and care - awaiting assessment and plan Pain management PT and OT ordered WBS? DVT prophylaxis with Lovenox RIGHT rib fxs ? flail chest RIGHT pulmonary contusion O2 as needed Aggressive pulmonary toileting Pain management - adjusted for better control PT and OT ordered Encourage out of bed Chest x-ray today shows right mid and lower lobe densities with right pleural effusion CT-guided chest tube placement today and IR Follow-up labs and chest x-ray in the morning DM HTN 1800 ADA diet Resumed home medications - Cozaar. HCTZ. Clonidine when necessary Vital signs every 4 hours Problem Qualifiers (1) Coronary artery disease: Qualified Codes: I25.10 - Atherosclerotic heart disease of [place] coronary artery without angina pectoris (2) Hyperlipidemia: Qualified Codes: E78.5 - Hyperlipidemia, unspecified (3) Hypertension: Qualified Codes: I10 - Essential (primary) hypertension (4) Ribs, multiple fractures: Qualified Codes: S22.41XA - Multiple fractures of ribs, right side, initial encounter for closed fracture Lamar Little Feb 27, 2017 09:33
[2017-02-27] MEDS: LOSARTAN 50 MG TAB PO SCH (10:24)
[2017-02-27] MEDS: HYDROCHLOROTHIAZIDE 12.5 MG CAP PO SCH (10:24)
[2017-02-27] MEDS: DOCUSATE SODIUM 50 MG/SENNA 8.6 MG TAB PO SCH ×2 (10:25→21:00)
[2017-02-27] MEDS: THYROID 60 MG TAB PO SCH (10:26)
[2017-02-27] MEDS: METHOCARBAMOL 500 MG TAB PO SCH ×2 (10:26→18:55)
[2017-02-27] MEDS: PANTOPRAZOLE SOD 40 MG DELAYED RELEASE TAB PO SCH (10:26)
[2017-02-27] MEDS: CITALOPRAM HYDROBROMIDE 20 MG TAB PO SCH (10:26)
[2017-02-27] MEDS: LIDOCAINE HCL 5% PATCH T-DERMAL SCH (10:27)
[2017-02-27] MEDS: POLYETHYLENE GLYCOL 17 GM PKG PO SCH (10:27)
[2017-02-27] MEDS ORDERED: fentaNYL 50 MCG/HR PATCH T-DERMAL SCH (14:00)
--- NOTE | 2017-02-27 14:22 | HHI.PR ---
cc: Elvia Mark MD Immediate Post Op Note Procedure Date: Feb 27, 2017 Pre Op Diagnosis: Closed left distal radius fracture Post Op Diagnosis: same Surgeon: Elvia Mark Vp Software Support(s): none Procedure: ORIF left distal radius, extraarticular fracture Complications: none Specimen(s) removed: none Estimated blood loss: minimal Anesthesia: General Drains: None IVF Patient to: PACU Patient Condition: Good Implant/Devices: SEE IMPLANT LOG (if applicable) Date/Time of Procedure: SEE SURGICAL CARE RECORD Elvia Mark MD Feb 27, 2017 14:22
[2017-02-27] MEDS ORDERED: SODIUM CHLORIDE 0.9% FLUSH 10 ML FLUSH IV FLUSH PRN (14:30)
[2017-02-27] MEDS: KETOROLAC TROMETHAMINE 30 MG/ML (IVP) VIAL IV PUSH SCH ×3 (14:54→23:52)
--- NOTE | 2017-02-27 17:20 | RADRPT ---
EXAM DATE/TIME: 02/27/2017 16:50 [facility] COMPARISON: No previous studies available for comparison. INDICATIONS : Shortness of breath, cough; evaluate for pleural effusion. RADIATION DOSE: 9.26 CTDIvol (mGy) MEDICAL HISTORY : Cardiovascular disease. Hypertension. Diabetes mellitus type 2. SURGICAL HISTORY : Appendectomy. ENCOUNTER: Initial ACUITY: 2 days PAIN SCALE: 7/10 LOCATION: Right chest TECHNIQUE: Volumetric scanning of the chest was performed. Using automated exposure control and adjustment of t he mA and/or kV according to patient size, radiation dose was kept as low as reasonably achievable to obtain optimal diagnostic quality images. DICOM format image data is available electronically for r eview and comparison. Follow-up recommendations for detected pulmonary nodules are based at a minimum on nodule size and pa tient risk factors according to Fleischner Society Guidelines. FINDINGS: LUNGS: Focal ground glass opacities in the left lung apex and anterolateral right upper lobe. Airspace conso lidation at the lung bases, more prominently in the right. Calcified nodule in the left lower lobe li makenzie reflects a granuloma. PLEURAE: There is a trace simple appearing right-sided pleural effusion. MEDIASTINUM: Main pulmonary artery is prominent measuring up to 3.4 cm. Coronary artery calcifications. Heart is o therwise unremarkable without significant pericardial effusion. Subcentimeter mediastinal nodes do no t meet CT size criteria. No gross adenopathy. AXILLAE: Within normal limits. No lymphadenopathy. MUSCULOSKELETAL: Within normal limits for patient age. MISCELLANEOUS: Contrast is noted in the gallbladder likely vicarious excretion from recent contrast administration. The right kidney is incompletely evaluated. There is suggestion of possible hydronephrosis although t he kidney is insufficiently visualized to confirm this. CONCLUSION: 1. Trace right pleural effusion. 2. Bilateral, right greater than left, lower lobe consolidation. Differential considerations include aspiration in the appropriate clinical setting. 3. Focal ground glass opacities in the left lung apex and anterolateral right upper lobe. Suspect the se are inflammatory/infectious in etiology. Consider followup examination to document resolution. Thi s can be performed in approximately 6 months as indicated. 4. The right renal superior pole is imaged in the upper abdomen with suggestion of possible hydroneph rosis. Consider ultrasound examination for further evaluation. Mook Elizondo MD on February 27, 2017 at 17:11 Board Certified Radiologist. This report was verified electronically.
--- NOTE | 2017-02-27 18:20 | HHI.PR ---
Subjective Remarks ALERT SITTING IN BED PAIN R CHEST Objective Vital Signs Date Time Temp Pulse Resp B/P (MAP) Pulse Ox O2 Delivery O2 Flow Rate FiO2 02/27/17 12:00 99.6 93 16 175/72 (106) 94 02/27/17 08:02 91 Nasal Cannula 3.00 02/27/17 08:00 100.1 77 16 134/60 (84) 94 02/27/17 05:30 99.6 89 17 109/64 (79) 94 02/27/17 01:00 99.8 02/27/17 00:10 102.8 95 18 113/55 (74) 95 02/26/17 20:47 102.9 104 18 144/62 (89) 96 02/26/17 20:30 78 02/26/17 20:30 Nasal Cannula 3.00 I/O 02/26/17 02/26/17 02/26/17 02/27/17 02/27/17 02/27/17 07:00 15:00 23:00 07:00 15:00 23:00 Intake Total 340 ml 1000 ml 240 ml 1500 ml Balance 340 ml 1000 ml 240 ml 1500 ml Intake Oral 240 ml 240 ml IV Total 100 ml 1000 ml 1500 ml # Voids 1 4 Result Diagram: 02/26/17 0900 02/26/17 0900 Assessment and Plan Assessment and Plan RIB FX PULM CONTUSION PLAN F/U CXRAY PAIN MEDS INCREASE ACTIVITY home am if stable Discharge Planning Vital Signs Date Time Temp Pulse Resp B/P (MAP) Pulse Ox O2 Delivery O2 Flow Rate FiO2 02/27/17 12:00 99.6 93 16 175/72 (106) 94 02/27/17 08:02 91 Nasal Cannula 3.00 02/27/17 08:00 100.1 77 16 134/60 (84) 94 02/27/17 05:30 99.6 89 17 109/64 (79) 94 02/27/17 01:00 99.8 02/27/17 00:10 102.8 95 18 113/55 (74) 95 02/26/17 20:47 102.9 104 18 144/62 (89) 96 02/26/17 20:30 78 02/26/17 20:30 Nasal Cannula 3.00 Physician Attestation GENERAL: SKIN: Warm and dry. HEAD: Atraumatic. Normocephalic. EYES: Pupils equal and round. No scleral icterus. No injection or drainage. ENT: No nasal bleeding or discharge. Mucous membranes pink and moist. NECK: Trachea midline. No JVD. CARDIOVASCULAR: Regular rate and rhythm. RESPIRATORY: No accessory muscle use. Clear to auscultation. Breath sounds equal bilaterally. GASTROINTESTINAL: Abdomen soft, non-tender, nondistended. Hepatic and splenic margins not palpable. MUSCULOSKELETAL: Extremities without clubbing, cyanosis, or edema. No obvious deformities. NEUROLOGICAL: Awake and alert. No obvious cranial nerve deficits. Motor grossly within normal limits. Five out of 5 muscle strength in the arms and legs. Normal speech. PSYCHIATRIC: Appropriate mood and affect; insight and judgment normal. Akash Bustos MD Feb 27, 2017 18:20
--- NOTE | 2017-02-27 18:32 | HHI.PR ---
Subjective Remarks ALERT SITTING IN BED PAIN R CHEST Objective Vital Signs Date Time Temp Pulse Resp B/P (MAP) Pulse Ox O2 Delivery O2 Flow Rate FiO2 02/27/17 12:00 99.6 93 16 175/72 (106) 94 02/27/17 08:02 91 Nasal Cannula 3.00 02/27/17 08:00 100.1 77 16 134/60 (84) 94 02/27/17 05:30 99.6 89 17 109/64 (79) 94 02/27/17 01:00 99.8 02/27/17 00:10 102.8 95 18 113/55 (74) 95 02/26/17 20:47 102.9 104 18 144/62 (89) 96 02/26/17 20:30 78 02/26/17 20:30 Nasal Cannula 3.00 I/O 02/26/17 02/26/17 02/26/17 02/27/17 02/27/17 02/27/17 07:00 15:00 23:00 07:00 15:00 23:00 Intake Total 340 ml 1000 ml 240 ml 1500 ml Balance 340 ml 1000 ml 240 ml 1500 ml Intake Oral 240 ml 240 ml IV Total 100 ml 1000 ml 1500 ml # Voids 1 4 Result Diagram: 02/26/17 0900 02/26/17 0900 Assessment and Plan Assessment and Plan RIB FX PULM CONTUSION PLAN F/U CXRAY PAIN MEDS INCREASE ACTIVITY home am if stable Akash Bustos MD Feb 27, 2017 18:32
[2017-02-27] MEDS ORDERED: SODIUM CHLORIDE 0.9% FLUSH 10 ML FLUSH IV FLUSH SCH (21:00)
[2017-02-27] MEDS ORDERED: THYROID 15 MG TAB PO SCH (23:00)
[2017-02-28 00:15] VITALS: BP 128/64; PULSE 80; RESP 18; TEMP 98.9; O2SAT 95
[2017-02-28] MEDS: METHOCARBAMOL 500 MG TAB PO SCH ×2 (01:01→09:17)
[2017-02-28] MEDS: HYOSCYAMINE 0.125 MG TAB PO SCH ×2 (02:34→09:00)
[2017-02-28] MEDS: INSULIN NovoLIN REGULAR SUPPLEMENTAL SCALE SQ SCH ×2 (03:09→09:20)
[2017-02-28 04:40] VITALS: BP 180/77; PULSE 78; RESP 19; TEMP 99; O2SAT 98
[2017-02-28 05:03] LABS: AUTOMATED NEUTROPHIL # 7.2 TH/MM3 (1.8-7.7); BASOPHIL % 0.3 % (0.0-2.0); EOSINOPHIL # 0.4 TH/MM3 (0-0.4); EOSINOPHIL % 4.7 % (0.0-4.0); HEMATOCRIT 37.3 % (35.0-46.0); LYMPH % 11.5 % (9.0-44.0); LYMPHOCYTE # 1.1 TH/MM3 (1.0-4.8); MEAN CELL VOLUME 86.2 FL (80.0-100.0); MEAN CORPUSCULAR HGB CONC 33.6 % (32.0-36.0); MONO % 8.4 % (0.0-8.0); NEUT % 75.1 % (16.0-70.0); PLATELET COUNT 125 TH/MM3 (150-450); RED BLOOD COUNT 4.33 MIL/MM3 (4.00-5.30); RED CELL DISTRIBUTION WIDTH 12.8 % (11.6-17.2); WHITE BLOOD COUNT 9.5 TH/MM3 (4.0-11.0)
[2017-02-28 05:09] LABS: ANION GAP 9 MEQ/L (5-15); AST (GOT) 16 U/L (15-37); BICARBONATE 25.6 MEQ/L (21.0-32.0); BLOOD UREA NITROGEN 24 MG/DL (7-18); CHLORIDE 100 MEQ/L (98-107); GLOMERULAR FILTRATION RATE 40 ML/MIN (>89); MAGNESIUM 1.8 MG/DL (1.5-2.5); POTASSIUM 3.7 MEQ/L (3.5-5.1); SODIUM (NA) 135 MEQ/L (136-145)
[2017-02-28 05:10] LABS: ALT (GPT) 11 U/L (10-53)
[2017-02-28 05:12] LABS: ALKALINE PHOSPHATASE 83 U/L (45-117); TOTAL BILIRUBIN ADULT 0.6 MG/DL (0.2-1.0)
[2017-02-28] MEDS: KETOROLAC TROMETHAMINE 30 MG/ML (IVP) VIAL IV PUSH SCH ×2 (05:32→13:35)
[2017-02-28 05:33] LABS: HEMO FLAGS AUTO DIFF
[2017-02-28 05:35] LABS: BANDS 13 % (0-6); EOSINOPHILS 2 % (0-4); NEUTROPHIL # MANUAL DIFF 7.5 TH/MM3 (1.8-7.7); POLYS (SEG NEUTROPHILS) 66 % (16-70); WBC DIFF SAMPLE 100
[2017-02-28 05:36] LABS: PLATELET ESTIMATE SMEAR LOW (NORMAL); PLATELET MORPHOLOGY ENLARGED (NORMAL); SCAN/DIFF FINAL DIFF MANUAL
[2017-02-28 05:37] LABS: TOXIC VACUOLATION PRESENT (NONE SEEN)
--- NOTE | 2017-02-28 07:34 | RADRPT ---
EXAM DATE/TIME: 02/28/2017 06:57 [facility] COMPARISON: CT THORAX W/O CONTRAST, February 27, 2017, 16:50. CHEST SINGLE AP, February 27, 2017, 6:12. INDICATIONS : Shortness of Breath MEDICAL HISTORY : Cardiovascular disease. Hypertension. Diabetes SURGICAL HISTORY : None. ENCOUNTER: Subsequent ACUITY: 4 - 6 days PAIN SCORE: 0/10 LOCATION: Bilateral chest FINDINGS: Portable AP view of the chest demonstrates a normal-sized cardiac silhouette in this patient post med sergey sternotomy and CABG. Multiple EKG lines overlie the patient. There is elevation of right hemidiap hragm with mild atelectasis versus consolidation at the lung bases. No pneumothorax is visualized. Mu ltiple displaced right rib fractures are again visualized. CONCLUSION: 1. Stable chest x-ray with bibasilar atelectasis. 2. Multiple right rib fractures remain visualized and no pneumothorax is seen. Luis Fernando Salinas MD on February 28, 2017 at 7:31 Board Certified Radiologist. This report was verified electronically.
[2017-02-28 08:00] VITALS: BP_SYST 182; BP_SYST 202; BP_DIAS 76; BP_DIAS 86; PULSE 85; RESP 18; TEMP 98; O2SAT 91
[2017-02-28] MEDS: RESP: ALBUTEROL 2.5 MG/IPRATROPIUM 0.5 MG NEB (SCH) NEB ×3 (08:29→16:00)
[2017-02-28 08:32] VITALS: O2SAT 96
--- NOTE | 2017-02-28 09:03 | PD.CONS ---
cc: Jesus Mcneal Jr., MD HPI Service Orthopedic Surgeons Consult Requested By Primary Care Physician Unknown Admission Diagnosis right sided flail chest, s/p fall, hypertension. Diagnoses: Chief Complaint: old RIGHT proximal humerus fracture History of Present Illness 71-year-old female with quite complex past medical history apparently fell at home and was presented to [facility]. CT of the chest shows multiple right-sided rib fractures 3, 4, 5, 6, 7, and 8. There is no evidence of lung contusion or hemopneumothorax. Patient was accepted as a transfer for ICU management. During the workup, chest x-ray reveal a right proximal humerus fracture. The patient denies any recent trauma or fall. She fell and had a right proximal humerus 4 months ago which was treated nonoperatively. She denies any complaints of the right upper extremity. PAST MEDICAL HISTORY Is that of: 1. Hypertension. 2. Hypothyroidism. 3. Diabetes mellitus. 4. Previous history of coronary artery disease. PAST SURGICAL HISTORY 1. Coronary artery bypass graft. 2. section. 3. Appendectomy. SOCIAL HISTORY The patient does not drink but smokes occasionally, very little. MEDICATIONS Can be found on the record. Past Family Social History Allergies: Coded Allergies: dicyclomine (Verified Allergy, Unknown, 02/25/17) metoclopramide (Verified Allergy, Unknown, 02/25/17) Active Ordered Medications Current Medications Medications (Trade) Dose Ordered Sig/Rosa Route Start Time Stop Time Status Last Admin (D50w (Vial) Inj) 50 ml UNSCH PRN IV PUSH 02/25/17 03:45 (Glucagon Inj) 1 mg UNSCH PRN OTHER 02/25/17 03:45 (NovoLIN R SUPPLEMENTAL SCALE) 1 Q6H SQ 02/25/17 03:45 02/27/17 21:45 (Protonix) 40 mg DAILY PO 02/25/17 09:00 02/27/17 10:26 (Morphine Inj) 2 mg Q3HR PRN IV PUSH 02/25/17 07:45 02/26/17 04:09 (Roxicodone) 5 mg Q4H PRN PO 02/25/17 07:45 (Roxicodone) 10 mg Q4H PRN PO 02/25/17 07:45 02/26/17 23:59 (Vasotec Inj) 1.25 mg Q8H PRN IV PUSH 02/25/17 07:45 02/26/17 03:26 (Zofran Inj) 4 mg Q6H PRN IV PUSH 02/25/17 07:45 (Lidoderm 5% Patch.12 Hr) 1 patch DAILY T-DERMAL 02/25/17 09:00 02/27/17 10:27 (Robaxin) 500 mg Q8H PO 02/25/17 09:00 02/28/17 01:01 (Alannah-Colace) 1 tab BID PO 02/25/17 09:00 02/27/17 10:25 (Miralax) 17 gm DAILY PO 02/25/17 09:00 02/27/17 10:27 (CeleXA) 20 mg DAILY PO 02/25/17 09:00 02/27/17 10:26 (Levsin) 0.125 mg Q6H PO 02/25/17 09:00 02/28/17 02:34 ([place] Thyroid) 120 mg DAILY PO 02/25/17 09:00 02/27/17 10:26 (Cozaar) 50 mg DAILY PO 02/25/17 09:00 02/27/17 10:24 (Microzide) 12.5 mg DAILY PO 02/25/17 09:00 02/27/17 10:24 (Duoneb Neb) 1 ampule Q4HR WHILE AWAKE NEB NEB 02/25/17 12:00 02/27/17 20:38 (Catapres) 0.1 mg Q6H PRN PO 02/26/17 06:15 02/26/17 16:43 (Lovenox Inj) 30 mg Q12H SQ 02/26/17 17:00 Future Hold 02/27/17 03:30 (Tylenol) 650 mg Q4H PRN PO 02/26/17 23:45 02/26/17 23:59 (Lactulose Liq) 30 ml DAILY PO 02/27/17 06:45 02/27/17 10:27 (Toradol Inj) 15 mg Q6HR IV PUSH 02/27/17 13:45 03/04/17 13:44 02/28/17 05:32 (Duragesic 50 Mcg Patch.72 Hr) 1 patch Q3D T-DERMAL 02/27/17 14:00 02/27/17 14:49 Miscellaneous Information 1 Q3D T-DERMAL 03/02/17 14:00 ([place] Thyroid) 15 mg HS PO 02/27/17 23:00 02/27/17 22:47 Reported Meds & Active Scripts Active Reported Citalopram (Citalopram Hydrobromide) 20 Mg Tab 20 Mg PO DAILY [place] Thyroid (Thyroid) 15 Mg Tab 15 Mg PO HS Tramadol (Tramadol HCl) 50 Mg Tab 50 Mg PO Q4H PRN Potassium Chloride ER (Potassium Chloride) 10 Meq Cap Unknown Dose PO BID Levsin (Hyoscyamine Sulfate) 0.125 Mg Tab 0.125 Mg PO Q6H Lorazepam 0.5 Mg Tab 0.5 Mg PO Q4H PRN Losartan-Hydrochlorothiazide 50-12.5 Mg Tab 1 Tab PO DAILY Lazara Thyroid (Thyroid) 120 Mg Tab 120 Mg PO DAILY Physical Exam Vital Signs Vital Signs Date Time Temp Pulse Resp B/P (MAP) Pulse Ox O2 Delivery O2 Flow Rate FiO2 02/28/17 04:40 99.0 78 19 180/77 (111) 98 02/28/17 00:15 98.9 80 18 128/64 (85) 95 02/27/17 20:42 95 Nasal Cannula 3.00 02/27/17 20:30 Nasal Cannula 3.00 02/27/17 20:30 99.1 84 18 131/62 (85) 94 02/27/17 20:00 80 02/27/17 16:00 99.8 82 16 134/70 (91) 92 02/27/17 12:00 88 02/27/17 12:00 99.6 93 16 175/72 (106) 94 Physical Exam Patient appears confused. No acute distress. Head: NC/AT Neck: No pain with any range of motion and neck. Trachea is midline. Pulmonary: Normal respiratory effort. Right upper extremity: No deformities Intact sensation distally in median, ulnar, and radial nerve. Intact motor in anterior interosseous. Nontender along the right humerus. Normal passive range of motion of the right shoulder and elbow. 4/5 motor strength. grossly. nvi. Left upper extremity: No deformities. Intact sensation distally in median, ulnar, and radial nerve. Intact motor in anterior interosseous, posterior interosseous, and ulnar nerve. 2+ radial artery pulses. Good cap refill. Bilateral lower extremity: No deformity, grossly Neurovascularly intact. Negative Homans sign. Laboratory Laboratory Tests Test 02/28/17 04:35 White Blood Count 9.5 Red Blood Count 4.33 Hemoglobin 12.5 Hematocrit 37.3 Mean Corpuscular Volume 86.2 Mean Corpuscular Hemoglobin 29.0 Mean Corpuscular Hemoglobin Concent 33.6 Red Cell Distribution Width 12.8 Platelet Count 125 Mean Platelet Volume 9.4 Neutrophils (%) (Auto) 75.1 Lymphocytes (%) (Auto) 11.5 Monocytes (%) (Auto) 8.4 Eosinophils (%) (Auto) 4.7 Basophils (%) (Auto) 0.3 Neutrophils # (Auto) 7.2 Lymphocytes # (Auto) 1.1 Monocytes # (Auto) 0.8 Eosinophils # (Auto) 0.4 Basophils # (Auto) 0.0 CBC Comment AUTO DIFF Differential Total Cells Counted 100 Neutrophils % (Manual) 66 Band Neutrophils % 13 Lymphocytes % 16 Monocytes % 3 Eosinophils % 2 Neutrophils # (Manual) 7.5 Differential Comment FINAL DIFF MANUAL Toxic Vacuolation PRESENT Platelet Estimate LOW Platelet Morphology Comment ENLARGED Red Cell Morphology Comment NORMAL Blood Urea Nitrogen 24 Creatinine 1.30 Random Glucose 93 Total Protein 6.8 Albumin 2.9 Calcium Level 8.9 Magnesium Level 1.8 Alkaline Phosphatase 83 Aspartate Amino Transf (AST/SGOT) 16 Alanine Aminotransferase (ALT/SGPT) 11 Total Bilirubin 0.6 Sodium Level 135 Potassium Level 3.7 Chloride Level 100 Carbon Dioxide Level 25.6 Anion Gap 9 Estimat Glomerular Filtration Rate 40 Result Diagram: 02/28/17 0435 02/28/17 0435 Imaging Last 72 hours Impressions Chest X-Ray 02/28/17 0600 Signed Impressions: Service Date/Time: Tuesday, February 28, 2017 06:57 - CONCLUSION: 1. Stable chest x-ray with bibasilar atelectasis. 2. Multiple right rib fractures remain visualized and no pneumothorax is seen. Luis Fernando Salinas MD Shoulder X-Ray 02/28/17 0000 Signed Impressions: Service Date/Time: Tuesday, February 28, 2017 09:54 - CONCLUSION: Spiral fracture midshaft right humerus in reasonable alignment.. Lonnie Keller MD FACR Chest CT 02/27/17 1309 Signed Impressions: Service Date/Time: February 16:50 - CONCLUSION: 1. Trace right pleural effusion. 2. Bilateral, right greater than left, lower lobe consolidation. Differential considerations include aspiration in the appropriate clinical setting. 3. Focal ground glass opacities in the left lung apex and anterolateral right upper lobe. Suspect these are inflammatory/infectious in etiology. Consider followup examination to document resolution. This can be performed in approximately 6 months as indicated. 4. The right renal superior pole is imaged in the upper abdomen with suggestion of possible hydronephrosis. Consider ultrasound examination for further evaluation. Mook Elizondo MD Chest X-Ray 02/27/17 0600 Signed Impressions: Service Date/Time: February 06:12 - CONCLUSION: 1. Increased density at the right base representing either elevation of the right hemidiaphragm versus consolidation or atelectasis of the right middle and lower lobes and/or a right pleural effusion. Given the possibility of collapse of the right middle and lower lobe, one could consider a central lesion. 2. Right rib and proximal humeral fractures. Luis Fernando Fuentes MD Chest X-Ray 02/26/17 0000 Signed Impressions: Service Date/Time: Sunday, February 26, 2017 08:14 - CONCLUSION: Slight improvement in the bibasilar consolidations. Jose Parra Jr., MD Assessment & Plan Assessment and Plan 71-year-old female with a Complicated medical history was transferred to our facility for ICU management. During workup, chest x-ray revealed a right proximal humerus fracture. After discussing with the patient, she denies any recent trauma or fall but she reports having an injury 4 months ago at the right humerus which was treated nonoperatively. She is grossly neurovascularly intact with good range of motion of the right upper extremity with no complaints. X-ray examination revealed a healed fracture of the right humerus in acceptable alignment. There is no need for any surgical intervention at this time. Weightbearing as tolerated. Follow-up in 2 weeks. Jesus Mcneal Jr., MD Feb 28, 2017 09:03
[2017-02-28] MEDS: HYDROCHLOROTHIAZIDE 12.5 MG CAP PO SCH (09:16)
[2017-02-28] MEDS: PANTOPRAZOLE SOD 40 MG DELAYED RELEASE TAB PO SCH (09:17)
[2017-02-28] MEDS: LOSARTAN 50 MG TAB PO SCH (09:17)
[2017-02-28] MEDS: CITALOPRAM HYDROBROMIDE 20 MG TAB PO SCH (09:17)
[2017-02-28] MEDS: DOCUSATE SODIUM 50 MG/SENNA 8.6 MG TAB PO SCH (09:17)
[2017-02-28] MEDS: THYROID 60 MG TAB PO SCH (09:27)
[2017-02-28] MEDS: LACTULOSE SYRUP 20 GM/30 ML CUP PO SCH (09:33)
[2017-02-28] MEDS: LIDOCAINE HCL 5% PATCH T-DERMAL SCH (09:33)
[2017-02-28] MEDS: POLYETHYLENE GLYCOL 17 GM PKG PO SCH (09:33)
--- NOTE | 2017-02-28 10:33 | RADRPT ---
EXAM DATE/TIME: 02/28/2017 09:54 [place] COMPARISON: No previous studies available for comparison. INDICATIONS : Right shoulder pain. MEDICAL HISTORY : None. SURGICAL HISTORY : None. ENCOUNTER: Subsequent ACUITY: 3 weeks PAIN SCORE: 2/10 LOCATION: Right shoulder FINDINGS: Spiral fracture of the distal humerus lesion alignment in the stay well healed fracture proximal david fidel. Acromion and glenoid intact Mild interstitial edema with small right pleural effusion. CONCLUSION: Spiral fracture midshaft right humerus in reasonable alignment.. Lonnie Keller MD FACR on February 28, 2017 at 10:30 Board Certified Radiologist. This report was verified electronically.
[2017-02-28 12:00] VITALS: BP 180/75; PULSE 86; RESP 18; TEMP 98.7; O2SAT 90
--- NOTE | 2017-02-28 14:03 | HHI.PR ---
Subjective Subjective Notes PTD: 3 Patient lying in bed. No distress noted. at bedside. "My pain is about the same, but it's worse when I move or get up. It hurts." states she just got finished with a walk around the unit. "I want to go home. I feel better. I want to be home for [place]." Objective Vitals/I&O Vital Signs Date Time Temp Pulse Resp B/P (MAP) Pulse Ox O2 Delivery O2 Flow Rate FiO2 02/28/17 12:00 98.7 86 18 180/75 (110) 90 02/28/17 08:32 Nasal Cannula 3.00 Labs Laboratory Tests Test 02/28/17 04:35 White Blood Count 9.5 Red Blood Count 4.33 Hemoglobin 12.5 Hematocrit 37.3 Mean Corpuscular Volume 86.2 Mean Corpuscular Hemoglobin 29.0 Mean Corpuscular Hemoglobin Concent 33.6 Red Cell Distribution Width 12.8 Platelet Count 125 Mean Platelet Volume 9.4 Neutrophils (%) (Auto) 75.1 Lymphocytes (%) (Auto) 11.5 Monocytes (%) (Auto) 8.4 Eosinophils (%) (Auto) 4.7 Basophils (%) (Auto) 0.3 Neutrophils # (Auto) 7.2 Lymphocytes # (Auto) 1.1 Monocytes # (Auto) 0.8 Eosinophils # (Auto) 0.4 Basophils # (Auto) 0.0 CBC Comment AUTO DIFF Differential Total Cells Counted 100 Neutrophils % (Manual) 66 Band Neutrophils % 13 Lymphocytes % 16 Monocytes % 3 Eosinophils % 2 Neutrophils # (Manual) 7.5 Differential Comment FINAL DIFF MANUAL Toxic Vacuolation PRESENT Platelet Estimate LOW Platelet Morphology Comment ENLARGED Red Cell Morphology Comment NORMAL Blood Urea Nitrogen 24 Creatinine 1.30 Random Glucose 93 Total Protein 6.8 Albumin 2.9 Calcium Level 8.9 Magnesium Level 1.8 Alkaline Phosphatase 83 Aspartate Amino Transf (AST/SGOT) 16 Alanine Aminotransferase (ALT/SGPT) 11 Total Bilirubin 0.6 Sodium Level 135 Potassium Level 3.7 Chloride Level 100 Carbon Dioxide Level 25.6 Anion Gap 9 Estimat Glomerular Filtration Rate 40 Radiology Last 24 hours Impressions Chest X-Ray 02/28/17 0600 Signed Impressions: Service Date/Time: Tuesday, February 28, 2017 06:57 - CONCLUSION: 1. Stable chest x-ray with bibasilar atelectasis. 2. Multiple right rib fractures remain visualized and no pneumothorax is seen. Luis Fernando Salinas MD Shoulder X-Ray 02/28/17 0000 Signed Impressions: Service Date/Time: Tuesday, February 28, 2017 09:54 - CONCLUSION: Spiral fracture midshaft right humerus in reasonable alignment.. Lonnie Keller MD FACR Narrative Exam GENERAL: This is a 71-year-old female lying in bed. No distress noted. SKIN: Warm and dry. HEAD: Atraumatic. Normocephalic. EYES: PERRLA ENT: No nasal bleeding or discharge. Mucous membranes pink and moist. NECK: Trachea midline. No JVD. CARDIOVASCULAR: Regular rate and rhythm. RESPIRATORY: O2 NC 2L. No accessory muscle use. Lungs are clear to auscultation. Breath sounds equal bilaterally. No distress or dyspnea. IS = 500-750ml GASTROINTESTINAL: BS + x 4 quads. Abdomen soft, non-tender, nondistended. MUSCULOSKELETAL: Extremities without cyanosis, or edema. + peripheral pulses x 4 extremities. Warm with good capillary refill and sensation. MAEW. NEUROLOGICAL: Awake and alert. Normal speech and pattern. A/P Problem List: (1) Coronary artery disease ICD Codes: I25.10 - Atherosclerotic heart disease of [place] coronary artery without angina pectoris Status: Chronic (2) Diabetes mellitus ICD Codes: E11.9 - Type 2 diabetes mellitus without complications Status: Chronic (3) Hyperlipidemia ICD Codes: E78.5 - Hyperlipidemia, unspecified Status: Acute (4) Hypertension ICD Codes: I10 - Essential (primary) hypertension Status: Chronic (5) Ribs, multiple fractures ICD Codes: S22.49XA - Multiple fractures of ribs, unspecified side, initial encounter for closed fracture Status: Acute Assessment and Plan [place]: This is a 71-year-old female who sustained a fall. She fell from the standing position when she tripped over a dog toy and landed on her right ribs. She was a trauma transfer from [facility]. INJURIES: RIGHT rib fxs ? flail chest RIGHT pulmonary contusion RIGHT proximal humerus fx PMHx: CAD, DM, gastroparesis, HLD, HTN, Hypothyroidism, CABG, Cariac stents, undiagnosed COPD Procedures: Consults: Pulmonology. Orthopedics. Case management. Diet: Regular diet. Tolerating po diet. Encourage good po intake with each meal. Pulmonary: Encourage good pulmonary toileting. IS and acapella at bedside and pt encouraged to use. Rationale for use explained to patient, and verbalized understanding. EZ pap w/ nebs. O2 nasal cannula 2-3 L. Walk test ordered to assess for need for home O2. Yesterday CT chest shows trace right pleural effusion. Bilateral lower lobe consolidation. However, there was not enough fluid to warrant chest tube placement. Chest x-ray is stable with no PTX noted Follow up chest x-ray in the morning. PAIN Management: Oxycodone 5-10 mg q 4h. DC Morphine Robaxin 500 mg q 8h. Lidoderm patch. Fentanyl patch 50 mcg. DC Toradol . Weaned IV pain medication to DC, to prepare patient for discharge home Activity: OOB. PT and OT ordered. Encourage out of bed. GI prophylaxis: PO Protonix Bowel regimen: Alannah-colace, Miralax, Lactulose daily. LBM: 0 DVT prophylaxis: Mechanical VTE with SCDs. Chemical management with Lovenox 30 BID SQ. DC Planning: Case management consulted for assistance with final discharge disposition. Pt recommends [facility]. Face to face completed. Emotional support provided to patient and at bedside and plan of care discussed. Discussed with RN at bedside. Discussed pt condition and plan of care with collaborating trauma surgeon. Patient is hemodynamically stable and being managed on the med/surg floor. The trauma team will round each day, and evaluate plan of care on a daily basis. RIGHT humerus fx Orthopedics consulted and assisting in management and care Fractures are old/healing No intervention needed WBAT Pain management PT and OT ordered DVT prophylaxis with Lovenox RIGHT rib fxs ? flail chest RIGHT pulmonary contusion O2 as needed Plan for walk test today to evaluate for need for home O2 Aggressive pulmonary toileting Pain management PT and OT ordered Encourage out of bed Chest x-ray stable CT chest yesterday did not display enough for chest tube placement Follow-up labs and chest x-ray in the morning DM HTN 1800 ADA diet Resumed home medications - Cozaar. HCTZ. Clonidine when necessary Vital signs every 4 hours Attending Statement s/p chest wall injury no acute events overnight pain controlled with oral and IV meds vitals stable today exam: awake and alert, breathing stable, bilateral breath sounds, abdomen soft, nontender looks overall very good, respiratory status is improved, working toward DC plan soon The exam, history, and the medical decision-making described in the above note were completed with the assistance of the mid-level provider. I reviewed and agree with the findings presented. I attest that I had a [id number] encounter with the patient on the same day, and personally performed and documented my assessment and findings in the medical record. Problem Qualifiers (1) Coronary artery disease: Qualified Codes: I25.10 - Atherosclerotic heart disease of [place] coronary artery without angina pectoris (2) Diabetes mellitus: Qualified Codes: E13.9 - Other specified diabetes mellitus without complications (3) Hyperlipidemia: Qualified Codes: E78.4 - Other hyperlipidemia (4) Hypertension: Qualified Codes: I15.9 - Secondary hypertension, unspecified (5) Ribs, multiple fractures: Qualified Codes: S22.41XA - Multiple fractures of ribs, right side, initial encounter for closed fracture Lamar Little Feb 28, 2017 14:03 Alexis Strickland MD Mar 02, 2017 08:26
[2017-02-28] MEDS ORDERED: LIDO1ADH4 T-DERMAL (15:28)
[2017-02-28] MEDS ORDERED: METH500T3 PO (15:28)
[2017-02-28] MEDS ORDERED: PERC5TAB12 PO (15:28)
[2017-02-28] MEDS ORDERED: OXYGENDME NAS.CANULA (15:48)
--- NOTE | 2017-02-28 16:12 | HHI.PR ---
Subjective Remarks ALERT SITTING IN BED PAIN R CHEST IMPROVED Objective Vital Signs Date Time Temp Pulse Resp B/P (MAP) Pulse Ox O2 Delivery O2 Flow Rate FiO2 02/28/17 12:00 98.7 86 18 180/75 (110) 90 02/28/17 08:32 96 Nasal Cannula 3.00 02/28/17 08:00 98.0 85 18 202/86 (124) 91 182/76 (111) 02/28/17 04:40 99.0 78 19 180/77 (111) 98 02/28/17 00:15 98.9 80 18 128/64 (85) 95 02/27/17 20:42 95 Nasal Cannula 3.00 02/27/17 20:30 Nasal Cannula 3.00 02/27/17 20:30 99.1 84 18 131/62 (85) 94 02/27/17 20:00 80 I/O 02/27/17 02/27/17 02/27/17 02/28/17 02/28/17 02/28/17 07:00 15:00 23:00 07:00 15:00 23:00 Intake Total 240 ml 1500 ml 500 ml 500 ml Balance 240 ml 1500 ml 500 ml 500 ml Intake Oral 240 ml 500 ml 500 ml IV Total 1500 ml # Voids 4 0 4 # Bowel Movements 0 0 Result Diagram: 02/28/1743402/28/17434 Objective Remarks GENERAL: SKIN: Warm and dry. HEAD: Atraumatic. Normocephalic. EYES: Pupils equal and round. No scleral icterus. No injection or drainage. ENT: No nasal bleeding or discharge. Mucous membranes pink and moist. NECK: Trachea midline. No JVD. CARDIOVASCULAR: Regular rate and rhythm. RESPIRATORY: No accessory muscle use. Clear to auscultation. Breath sounds equal bilaterally. GASTROINTESTINAL: Abdomen soft, non-tender, nondistended. Hepatic and splenic margins not palpable. MUSCULOSKELETAL: Extremities without clubbing, cyanosis, or edema. No obvious deformities. NEUROLOGICAL: Awake and alert. No obvious cranial nerve deficits. Motor grossly within normal limits. Five out of 5 muscle strength in the arms and legs. Normal speech. PSYCHIATRIC: Appropriate mood and affect; insight and judgment normal. Assessment and Plan Assessment and Plan RIB FX PULM CONTUSION PLAN PAIN MEDS INCREASE ACTIVITY home TODAY Akash Bustos MD Feb 28, 2017 16:12
--- NOTE | 2017-03-01 14:36 | HHI.DS ---
Discharge Summary Admission Date Feb 25, 2017 at 01:54 Discharge Date: Feb 28, 2017 Admitting Diagnosis right sided flail chest, s/p fall, hypertension. (1) Coronary artery disease ICD Codes: I25.10 - Atherosclerotic heart disease of [place] coronary artery without angina pectoris Diagnosis: Principal Status: Chronic (2) Diabetes mellitus ICD Codes: E11.9 - Type 2 diabetes mellitus without complications Diagnosis: Principal Status: Chronic (3) Hyperlipidemia ICD Codes: E78.5 - Hyperlipidemia, unspecified Status: Acute (4) Hypertension ICD Codes: I10 - Essential (primary) hypertension Diagnosis: Principal Status: Chronic (5) Ribs, multiple fractures ICD Codes: S22.49XA - Multiple fractures of ribs, unspecified side, initial encounter for closed fracture Diagnosis: Principal Status: Acute Brief History Fall. CBC/BMP: 02/28/17 0435 02/28/17 0435 Significant Findings Laboratory Tests Test 02/28/17 04:35 Platelet Count 125 TH/MM3 (150-450) Neutrophils (%) (Auto) 75.1 % (16.0-70.0) Monocytes (%) (Auto) 8.4 % (0.0-8.0) Eosinophils (%) (Auto) 4.7 % (0.0-4.0) Band Neutrophils % 13 % (0-6) Toxic Vacuolation PRESENT (NONE SEEN) Platelet Estimate LOW (NORMAL) Platelet Morphology Comment ENLARGED (NORMAL) Blood Urea Nitrogen 24 MG/DL (7-18) Creatinine 1.30 MG/DL (0.50-1.00) Albumin 2.9 GM/DL (3.4-5.0) Sodium Level 135 MEQ/L (136-145) Estimat Glomerular Filtration Rate 40 ML/MIN (>89) Imaging Last Impressions Chest X-Ray 02/28/17 0600 Signed Impressions: Service Date/Time: Tuesday, February 28, 2017 06:57 - CONCLUSION: 1. Stable chest x-ray with bibasilar atelectasis. 2. Multiple right rib fractures remain visualized and no pneumothorax is seen. Luis Fernando Salinas MD Shoulder X-Ray 02/28/17 0000 Signed Impressions: Service Date/Time: Tuesday, February 28, 2017 09:54 - CONCLUSION: Spiral fracture midshaft right humerus in reasonable alignment.. Lonnie Keller MD FACR Chest CT 02/27/17 1309 Signed Impressions: Service Date/Time: February 16:50 - CONCLUSION: 1. Trace right pleural effusion. 2. Bilateral, right greater than left, lower lobe consolidation. Differential considerations include aspiration in the appropriate clinical setting. 3. Focal ground glass opacities in the left lung apex and anterolateral right upper lobe. Suspect these are inflammatory/infectious in etiology. Consider followup examination to document resolution. This can be performed in approximately 6 months as indicated. 4. The right renal superior pole is imaged in the upper abdomen with suggestion of possible hydronephrosis. Consider ultrasound examination for further evaluation. Mook Elizondo MD Neck CTA 02/25/17 0000 Signed Impressions: Service Date/Time: Saturday, February 25, 2017 21:46 - CONCLUSION: 1. Short segment 72%% stenosis of the proximal left internal carotid artery. 2. Long segment 60%% stenosis of the proximal left external carotid artery. 3. Smooth margin widening of the proximal right internal carotid artery suggesting ulcer. Jose Mason MD Carotid Artery Ultrasound 02/25/17 0000 Signed Impressions: Service Date/Time: Saturday, February 25, 2017 08:24 - CONCLUSION: 1. Calcified left carotid plaque with resultant moderate, approximately 50-69%%, stenosis. 2. No significant flow-limiting stenosis on the right. 3. Antegrade vertebral artery flow bilaterally. Mook Elizondo MD PE at Discharge GENERAL: This is a 71-year-old female lying in bed. No distress noted. SKIN: Warm and dry. HEAD: Atraumatic. Normocephalic. EYES: PERRLA ENT: No nasal bleeding or discharge. Mucous membranes pink and moist. NECK: Trachea midline. No JVD. CARDIOVASCULAR: Regular rate and rhythm. RESPIRATORY: O2 NC 2L. No accessory muscle use. Lungs are clear to auscultation. Breath sounds equal bilaterally. No distress or dyspnea. GASTROINTESTINAL: BS + x 4 quads. Abdomen soft, non-tender, nondistended. MUSCULOSKELETAL: Extremities without cyanosis, or edema. + peripheral pulses x 4 extremities. Warm with good capillary refill and sensation. MAEW. NEUROLOGICAL: Awake and alert. Normal speech and pattern. Hospital Course [place]: This is a 71-year-old female who sustained a fall. She fell from the standing position when she tripped over a dog toy and landed on her right ribs. She was a trauma transfer from [facility]. INJURIES: RIGHT rib fxs ? flail chest RIGHT pulmonary contusion RIGHT proximal humerus fx PMHx: CAD, DM, gastroparesis, HLD, HTN, Hypothyroidism, CABG, [place] stents, undiagnosed COPD Procedures: Consults: Pulmonology. Orthopedics. Case management. Patient really wants to go home and time for [place]. The patient is now tolerating a po diet. Eating and drinking well. Pain is being managed well with PO pain medications, and patient is being a provided with a script for pain meds upon discharge. (NO driving while taking narcotic pain medication enforced to patient.) We have recommended to patient to continue with stool softeners while taking narcotic pain medications to prevent constipation. Pt has been participating in PT and OT while admitted at [facility] and has been ambulating with their assistance and independently . PT recommends HHC. (Home O2 needed) O2 has been delivered to the patient at her hospital room for home use. All follow up appointments have been provided and discussed with the patient. It is recommended that the patient keeps all his follow up appointments for continued recovery. Patient's condition and plan of care discussed with collaborating trauma surgeon. He is agreeable to plan for discharge today. Therefore, the patient is stable to be safely discharged home from a trauma surgery standpoint. Thank you for allowing us to participate in her care. We wish Hilda the best in her recovery. RIGHT humerus fx Orthopedics consulted and assisting in management and care Fractures are old/healing No intervention needed WBAT Pain management PT and OT ordered DVT prophylaxis with Lovenox RIGHT rib fxs ? flail chest RIGHT pulmonary contusion O2 as needed Walk test - sats equals 85% Patient will need home O2 Aggressive pulmonary toileting Pain management PT and OT ordered [place] out of bed Chest x-ray stable CT chest yesterday did not display enough for chest tube placement DM HTN 1800 ADA diet Resumed home medications - Cozaar. HCTZ. Clonidine when necessary Vital signs every 4 hours Pt Condition on Discharge: Stable Discharge Disposition: Disch w/ Home Health Serv Discharge Instructions DIET: Follow Instructions for: Heart Healthy Diet Activities you can perform: Regular-No Restrictions, Weight Bearing as Mina Other Activity Instructions: WBAT Lamar Mejia Mar 01, 2017 14:36
[2017-03-02] MEDS ORDERED: REMOVE OLD DURAGESIC (FENTANYL) PATCH T-DERMAL SCH (14:00)
== END 2017-02-28 18:16 | disposition home health service (06) | DRG 184 ==
LOC: NEPE 00:03 → NEDA 01:54 → N03A 03:46 → N05B 16:05
PROVIDERS: ADMIT Surgery; ATTEND Surgery
PROC: 0W9930Z Drainage of Right Pleural Cavity with Drainage Device, Percutaneous Approach (ICD-10-PCS; principal; 2017-02-27)
DX: S22.5XXA Flail chest, initial encounter for closed fracture (principal); S27.321A Contusion of lung, unilateral, initial encounter; E11.43 Type 2 diabetes mellitus with diabetic autonomic (poly)neuropathy; J44.9 Chronic obstructive pulmonary disease, unspecified; K31.84 Gastroparesis; J90 Pleural effusion, not elsewhere classified; I25.10 Atherosclerotic heart disease of native coronary artery without angina pectoris; E03.9 Hypothyroidism, unspecified; E78.5 Hyperlipidemia, unspecified; I10 Essential (primary) hypertension; F32.9 Major depressive disorder, single episode, unspecified; W18.31XA Fall on same level due to stepping on an object, initial encounter; Y92.009 Unspecified place in unspecified non-institutional (private) residence as the place of occurrence of the external cause; Z95.1 Presence of aortocoronary bypass graft; Z72.0 Tobacco use
CPT/HCPCS: 70498; 71010; 71250; 73030; 80053; 82948; 83735; 84100; 84443; 85007; 85025; 85027; 85610; 87641; 93880; 94150; 94640; 94664; 94667; 94668; J0131; J1650; J1885; J2270; J2405; J7030; Q9967